=== PATIENT | female | born 1955 | race Two or more races ===

== ENCOUNTER 2020-12-01 13:50 | Outpatient (CLI) | payer OTHER | END 2020-12-01 13:51 | disposition home or self-care (01) | LOC: LAB 13:50 | PROVIDERS: ATTEND Internal Medicine Hematology & Oncology | DX: D64.89 Other specified anemias (principal); D68.0 Von Willebrand disease ==

== ENCOUNTER 2021-02-04 07:00 | Day surgery (SDC) | payer OTHER | END 2021-02-04 19:30 | disposition home or self-care (01) | LOC: CIR.AMB 07:00 | PROVIDERS: ATTEND Specialist | DX: N84.1 Polyp of cervix uteri (principal); Z20.822 Contact with and (suspected) exposure to COVID-19 ==

== ENCOUNTER 2021-04-29 11:29 | Outpatient (CLI) | payer OTHER | END 2021-04-29 11:30 | disposition home or self-care (01) | LOC: LAB 11:29 | DX: D68.0 Von Willebrand disease (principal); D64.9 Anemia, unspecified ==

== ENCOUNTER 2022-10-26 06:51 | Outpatient (CLI) | payer OTHER | END 2022-10-26 07:08 | disposition home or self-care (01) | LOC: LAB 06:51 | PROVIDERS: ATTEND Internal Medicine Rheumatology | DX: D64.9 Anemia, unspecified (principal); M81.0 Age-related osteoporosis without current pathological fracture; M06.4 Inflammatory polyarthropathy; N18.30 Chronic kidney disease, stage 3 unspecified; D68.1 Hereditary factor XI deficiency; D63.0 Anemia in neoplastic disease; Z88.6 Allergy status to analgesic agent ==